=== PATIENT | female | born 1990 | race Caucasian/White ===

== ENCOUNTER 2017-10-13 12:08 | Emergency (ER) | END 2017-10-13 12:24 | disposition left against medical advice (07) | LOC: C.EDB 12:10 | DX: T78.40XA Allergy, unspecified, initial encounter (principal); X58.XXXA Exposure to other specified factors, initial encounter ==

== ENCOUNTER 2017-10-22 11:53 | Emergency (ER) | payer BC ==
[~2017-10-22] VITALS: Ht 162.6 cm; Wt 66.5 kg
[2017-10-22 12:02] VITALS: TEMP 36.7; Ht 162.6 cm; Wt 66.5 kg
[2017-10-22] MEDS ORDERED: VNTHFA/IN INH ×2 (12:31→14:43)
[2017-10-22] MEDS ORDERED: DEXT1TAB50 PO (12:31)
[2017-10-22] MEDS ORDERED: FLUT1INH INH (12:31)
[2017-10-22] MEDS ORDERED: BCPILLS PO (12:31)
[2017-10-22] MEDS ORDERED: SODIUM CHLORIDE 0.9% 1000ML 1,000 ML IV STA (12:43)
[2017-10-22] MEDS ORDERED: ALBUT/IPRATROP 3MG/0.5MG NEB 3 ML VIAL INH STA (12:43)
[2017-10-22 14:02] LABS: BASO % 0.4 %; BASO ABS # 0.03 K/uL (0-0.2); EOS % 9.2 %; EOS ABS # 0.71 K/uL (0-0.5); HEMATOCRIT 39.2 % (37-47); HEMOGLOBIN 13.1 g/dL (12.0-16.0); IG# 0.01 K/uL (0.00-0.02); LYMPH % 34.6 %; LYMPH ABS # 2.66 K/uL (1.2-3.4); MEAN CELL VOLUME 95.4 fL (80-100); MEAN CORPUSCULAR HEMOGLOBIN 31.9 pg (25-34); MEAN CORPUSCULAR HGB CONC 33.4 g/dl (32-36); MEAN PLATELET VOLUME 10.1 fL (7.4-10.4); MONO % 7.7 %; MONO ABS # 0.59 K/uL (0.11-0.59); NEUT ABS # 3.69 K/uL (1.4-6.5); PLATELET COUNT 197 K/uL (130-400); RED CELL DISTRIBUTION WIDTH CV 13.7 % (11.5-14.5); RED CELL DISTRIBUTION WIDTH SD 47.8 fL (36.4-46.3); WHITE BLOOD COUNT 7.69 K/uL (4.8-10.8)
--- NOTE | 2017-10-22 14:09 | DIAGNOSTIC IMAGING REPORT ---
TWO VIEW CHEST CLINICAL HISTORY: Dyspnea. FINDINGS: PA and lateral chest radiographs are obtained. No prior studies are available for comparison at the time of dictation. The cardiomediastinal silhouette is unremarkable. The lungs and pleural spaces are clear. There is no pneumothorax. The bony thorax appears intact. IMPRESSION: No active disease in the chest. Electronically signed by: Pradip Albright M.D. 10/22/2017 2:08 PM Dictated Date/Time: 10/22/2017 2:07 PM
[2017-10-22 14:20] LABS: ALBUMIN 3.4 gm/dl (3.4-5.0); CALCIUM 8.3 mg/dl (8.5-10.1); CREATININE 0.89 mg/dl (0.60-1.20); POTASSIUM 3.7 mmol/L (3.5-5.1)
[2017-10-22 14:23] LABS: TOTAL PROTEIN 6.4 gm/dl (6.4-8.2)
[2017-10-22 14:30] LABS: INFLUENZA B ANTIGEN Neg for Influ B (NEG)
[2017-10-22 14:44] VITALS: BP 110/60; PULSE 90; O2SAT 95
--- NOTE | 2017-10-23 06:29 | EMERGENCY ROOM VISIT NOTE ---
ED Visit Note First contact with patient: 12:19 Chief Complaint: My chest is hurting when I cough. History of Present Illness: Ms. Rand is a 27-year-old white female who ambulates into the ED complaining of cough, pleuritic chest pain and throat pain. Patient reports her symptoms started yesterday and have been constant. She reports that she has had a mildly productive cough of a yellowish sputum that is severe at times. Associated with her cough late last night she reports she developed a tightness sensation and that approximately the same time a sore throat. Currently she rates her chest tightness a 2/10. The discomfort is only with cough. She has not taken a medication for her cough or chest discomfort. Associated with her chest discomfort she does report intermittently she feels like her heart is racing and intermittently during her coughing episode she hears herself wheezing. She describes her throat discomfort as an achy sensation. She also rates this discomfort 2/10. Her pain worsens with swallowing. She has not identified any alleviating factors related to her discomfort. An as previously noted has not taken a medication. She denies fevers, chills, sweats, skin eruptions, skin color changes, headache , dizziness, lightheadedness, any abnormal neurological symptoms, voice changes , inability to swallow, drooling, painful talking, neck pain/stiffness, orthopnea, dependent edema, previous clots, claudication, cramping, recent surgery/inactivity/extended travel, estrogen and tobacco use, abdominal pain, nausea, vomiting. Review of Systems: As noted above in history of present illness. All body systems were reviewed and found to be negative as noted above. Past Medical History: As previously noted, unspecified skin disorder, status post tonsillectomy and wisdom teeth extraction. Current Medications: control, Mucinex, Allergies to Medications: Aleve. Social History: Patient is currently employed; she feels safe in her home environment; she denies tobacco use and admits to social alcohol use. Physical Examination: Vital Signs: Date Time Temp Pulse Resp B/P (MAP) Pulse Ox O2 Delivery O2 Flow Rate FiO2 10/22/17 14:44 90 20 110/60 95 Room Air 10/22/17 13:44 86 20 108/70 98 Room Air 10/22/17 13:12 96 10/22/17 12:02 36.7 99 20 131/89 96 Room Air GENERAL: 27-year-old female in mild to moderate distress due to pain, nontoxic- appearing, afebrile and hemodynamically stable. NEUROLOGICAL: Awake, alert and oriented to person, place and time. Answering questions appropriately and following commands. Normal gait. Good hand eye coordination. No focal motor sensory deficits. SKIN: Warm, dry and pink. No soft tissue eruptions or trauma noted. HEENT: Atraumatic and normocephalic. PERRLA. Sclera white and conjunctiva pink. No drainage from naris. Oral cavity moist and pink. Pharynx is nonerythematous or edematous. Speech normal. No lymphadenopathy. Trachea midline. No jugular venous distention. BACK: No tenderness over the bony spine. No CVA tenderness. THORAX: Lungs sounds are clear to auscultation but decreased in the bases. Equal bilaterally with symmetrical chest wall. No wheezing, rales or rhonchi. No crepitus, tenderness, subcutaneous air or deformities noted. HEART: Regular rate and rhythm. No gallops, rubs or murmurs are appreciated. No lifts, heaves or thrills. ABDOMEN: Flat, soft and nontender. Positive bowel sounds in all quadrants. No guarding, rigidity or organomegaly. EXTREMITIES: Moves all extremities well on command and with purpose. All distal neurovascular statuses are intact and equal bilaterally. No calf tenderness or cords. ED Course: Patient is assessed as noted above. Patient's medication list was reviewed. Laboratory Testing: Test 10/22/17 13:01 10/22/17 13:38 10/22/17 13:45 10/22/17 13:56 Range/Units Urine Color YELLOW Urine Appearance CLOUDY CLEAR Urine pH 7.0 4.5-7.5 Urine Specific [place] 1.024 1.000-1.030 Urine Protein NEG NEG Urine Glucose (UA) NEG NEG Urine Ketones NEG NEG Urine Occult Blood NEG NEG Urine Nitrite NEG NEG Urine Bilirubin NEG NEG Urine Urobilinogen NEG NEG Urine Leukocyte Esterase NEG NEG Urine WBC (Auto) 1-5 0-5 /hpf Urine RBC (Auto) 0-4 0-4 /hpf Urine Hyaline Casts (Auto) 1-5 0-5 /lpf Urine Epithelial Cells (Auto) 10-20 0-5 /lpf Urine Bacteria (Auto) NEG NEG Urine Test NEG NEG Influenza Type A Antigen Neg for Influ A NEG Influenza Type B Antigen Neg for Influ B NEG White Blood Count 7.69 4.8-10.8 K/uL Red Blood Count 4.11 4.2-5.4 M/uL Hemoglobin 13.1 12.0-16.0 g/dL Hematocrit 39.2 37-47 % Mean Corpuscular Volume 95.4 80-100 fL Mean Corpuscular Hemoglobin 31.9 25-34 pg Mean Corpuscular Hemoglobin Concent 33.4 32-36 g/dl Platelet Count 197 130-400 K/uL Mean Platelet Volume 10.1 7.4-10.4 fL Neutrophils (%) (Auto) 48.0 % Lymphocytes (%) (Auto) 34.6 % Monocytes (%) (Auto) 7.7 % Eosinophils (%) (Auto) 9.2 % Basophils (%) (Auto) 0.4 % Neutrophils # (Auto) 3.69 1.4-6.5 K/uL Lymphocytes # (Auto) 2.66 1.2-3.4 K/uL Monocytes # (Auto) 0.59 0.11-0.59 K/uL Eosinophils # (Auto) 0.71 0-0.5 K/uL Basophils # (Auto) 0.03 0-0.2 K/uL RDW Standard Deviation 47.8 36.4-46.3 fL RDW Coefficient of Variation 13.7 11.5-14.5 % Immature Granulocyte % (Auto) 0.1 % Immature Granulocyte # (Auto) 0.01 0.00-0.02 K/uL Sodium Level 139 136-145 mmol/L Potassium Level 3.7 3.5-5.1 mmol/L Chloride Level 106 98-107 mmol/L Carbon Dioxide Level 28 21-32 mmol/L Anion Gap 5.0 3-11 mmol/L Blood Urea Nitrogen 10 7-18 mg/dl Creatinine 0.89 0.60-1.20 mg/dl Est Creatinine Clear Calc Drug Dose 89.1 ml/min Estimated GFR () 102.9 Estimated GFR (Non- 88.8 BUN/Creatinine Ratio 10.7 10-20 Random Glucose 87 70-99 mg/dl Calcium Level 8.3 8.5-10.1 mg/dl Total Bilirubin 0.2 0.2-1 mg/dl Aspartate Amino Transf (AST/SGOT) 13 15-37 U/L Alanine Aminotransferase (ALT/SGPT) 19 12-78 U/L Alkaline Phosphatase 34 45-117 U/L Total Protein 6.4 6.4-8.2 gm/dl Albumin 3.4 3.4-5.0 gm/dl Globulin 3.0 2.5-4.0 gm/dl Albumin/Globulin Ratio 1.1 0.9-2 Bedside D-Dimer 163 0-450 ng/mlFEU EKG: Was read by myself and shows normal sinus rhythm with a ventricular rate of 84 bpm. Normal axis, intervals and complexes. No acute ST changes indicating ischemia, injury or infarction. No previous EKGs were on file for comparison. Chest X-Rays: Were read by myself and the radiologist showing no acute infiltrates, effusions or pneumothorax. Normal heart silhouette and bony anatomy. Patient was hydrated with normal saline and received an albuterol/Atrovent nebulizer breathing treatment. She was reassessed after her breathing treatment and she had improved air movement in the bases and continued to have no wheezing, rales or rhonchi. Patient was educated about today's findings and instructed on her treatment plan ; she verbalizes understanding and agreement with this plan. Clinical Impression: Upper respiratory tract infection area Decision-Making: Initially my differential diagnosis I considered bronchitis, influenza, pneumonia, pulmonary edema, pulmonary embolism and other causes. Disposition: Patient discharged home in stable condition; prior to departure she was reassessed and subjectively reported she was symptom-free. Plan: Patient was encouraged use ibuprofen or acetaminophen as needed for pain or fevers. Patient was prescribed an albuterol inhaler with spacer and encouraged to use 2 puffs every 6 hours for 5 days and as needed for shortness of breath/wheezing or severe coughing episode. Patient was encouraged to consider using OTC cough suppressants and decongestants as needed for her other symptoms. Patient was encouraged to return to the ED for worsening symptoms, uncontrolled fevers, coughing up blood, uncontrolled wheezing or any new/concerning symptoms.
== END 2017-10-22 14:55 | disposition home or self-care (01) ==
LOC: C.EDB 11:54 → C.EDC 14:55
DX: J06.9 Acute upper respiratory infection, unspecified (principal); Z98.818 Other dental procedure status; Z90.89 Acquired absence of other organs